=== PATIENT | female | born 1960 | race American Indian/Alaskan Native ===

== ENCOUNTER 2019-04-11 22:22 | Emergency (ER) | payer BC ==
[2019-04-11 22:37] VITALS: BMI 37.0
[2019-04-11 22:45] VITALS: TEMP 98.5
[2019-04-11] MEDS ORDERED: Albuterol-Ipratrop 3 mg / 0.5 (3 ml) UD IH STA (23:05)
--- NOTE | 2019-04-11 23:10 | ED PDOC ---
Arrival/HPI <Seth Rodriguez - Last Filed: 04/12/19 00:14> - General Historian: Patient - History of Present Illness Narrative History of Present Illness (Text): 04/11/19 23:07 CC: b/l LE swelling HPI: 58 yo female w/ PMH of CAD, DM2, HTN comes to ED for evaluation of b/l lower extremity swelling. Patient states that it started greater than a week ago. Patient states that she had prior episodes in the past but was limited to one leg only. Patient states that she has some chest tightness and attributes it to her asthma. Denies fevers, chills, chest pain, sob, n/v, constipation or diarrhea, and dysuria. Time/Duration: > week Symptom Onset: Gradual Symptom Course: Worsening Severity Level: 8 Activities at Onset: Light Context: Standing <Ricardo Gray - Last Filed: 04/12/19 03:10> - General Chief Complaint: Lower Extremity Problem/Injury Time Seen by Provider: 04/11/19 22:40 Past Medical History - Cardiac Hx Hypertension: Yes - Pulmonary Hx Asthma: Yes - Neurological Hx Transient Ischemic Attacks (TIA): Yes - HEENT Hx HEENT Disorder: No - Renal Hx Renal Disorder: No - Endocrine/Metabolic Hx Endocrine Disorders: Yes Hx Diabetes Mellitus Type 2: Yes - Hematological/Oncological Hx Blood Disorders: No - Integumentary Hx Dermatological Disorder: No - Musculoskeletal/Rheumatological Hx Falls: No - Gastrointestinal Hx Gastrointestinal Disorders: No - Genitourinary/Gynecological Hx Genitourinary Disorders: No - Psychiatric Hx Psychophysiologic Disorder: No Hx Substance Use: No - Surgical History Hx Tubal Ligation: Yes (24 years ago) Other/Comment: gallstones - Anesthesia Hx Anesthesia: Yes Hx Anesthesia Reactions: No Hx Malignant Hyperthermia: No - Suicidal Assessment Feels Threatened In Home Enviroment: No <Ricardo Gray - Last Filed: 04/12/19 03:10> Family/Social History Family/Social History: No Known Family HX Smoking Status: Never Smoked Hx Alcohol Use: Yes Frequency of alcohol use: Socially Hx Substance Use: No <Ricardo Gray - Last Filed: 04/12/19 03:10> Allergies/Home Meds <Seth Rodriguez - Last Filed: 04/12/19 00:14> <Ricardo Gray - Last Filed: 04/12/19 03:10> Allergies/Adverse Reactions: Allergies dog dander Allergy (Verified 04/11/19 22:39) SWELLING shrimp Allergy (Verified 04/11/19 22:39) RASH milk Adverse Reaction (Verified 04/11/19 22:39) DIARRHEA Home Medications: Home Meds Medication Instructions Recorded Confirmed Aspirin 325 mg PO DAILY 03/31/14 09/05/17 Rosuvastatin Calcium [Crestor] 1 tab PO DAILY 05/31/14 09/05/17 metFORMIN [glucOPHAGE] 500 mg PO BID 05/19/17 09/05/17 Cyanocobalamin (Vitamin B-12) 1 spray NS QWK 08/15/17 09/05/17 [Nascobal] Pregabalin [Lyrica] 75 mg PO BID 08/15/17 09/05/17 amLODIPine [Norvasc] 10 mg PO DAILY 08/15/17 09/05/17 Review of Systems - Review of Systems Constitutional: Normal. absent: Fatigue, Weight Change, Fevers Eyes: Normal. absent: Vision Changes, Photophobia ENT: Normal. absent: Hearing Changes, Tinnitus, TMJ Pain Respiratory: Normal. absent: SOB, Cough, Sputum, Wheezing Cardiovascular: Normal. absent: Chest Pain, Palpitations, Edema, Calf Pain Gastrointestinal: Normal. absent: Abdominal Pain, Stool Changes, Constipation, Diarrhea, Nausea, Vomiting Genitourinary Female: Normal. absent: Dysuria, Frequency, Hematuria Skin: Normal. absent: Rash, Pruritis, Skin Lesions Endocrine: Normal. absent: Diaphoresis, Polyuria, Polydipsia Hemo/Lymphatic: Other (b/l edema in LE) Psychiatric: Normal. absent: Anxiety, Depression <IsaacRicardo - Last Filed: 04/12/19 03:10> Physical Exam Vital Signs Temp Pulse Resp BP Pulse Ox 04/11/19 23:40 155/85 H 04/11/19 22:22 98.5 F 77 18 155/92 H 97 <Seth Rodriguez - Last Filed: 04/12/19 00:14> Vital Signs Reviewed: Yes Vital Signs Temp Pulse Resp BP Pulse Ox 04/11/19 22:22 98.5 F 77 18 155/92 H 97 Temperature: Afebrile Blood Pressure: Hypertensive Pulse: Regular Respiratory Rate: Normal Appearance: Positive for: Well-Appearing, Non-Toxic, Comfortable Pain Distress: None Mental Status: Positive for: Alert and Oriented X 3 - Systems Exam Head: Present: Atraumatic, Normocephalic Pupils: Present: PERRL Extroacular Muscles: Present: EOMI Conjunctiva: Present: Normal Mouth: Present: Moist Mucous Membranes. No: Dry Neck: Present: Normal Range of Motion. No: Meningeal Signs, Paraspinal Tenderness, JVD Respiratory/Chest: Present: Clear to Auscultation, Good Air Exchange. No: Respiratory Distress, Accessory Muscle Use, Wheezes, Decreased Breath Sounds Cardiovascular: Present: Regular Rate and Rhythm, Normal S1, S2. No: Murmurs Abdomen: Present: Normal Bowel Sounds. No: Tenderness, Distention, Peritoneal Signs Upper Extremity: Present: Normal Inspection. No: Cyanosis, Edema Lower Extremity: Present: Edema. No: Normal Inspection (+2 pitting edema in LE b/l), CALF TENDERNESS, Cyanosis, Erythema Neurological: Present: GCS=15, CN II-XII Intact, Speech Normal Skin: Present: Warm, Dry, Normal Color. No: Rashes Psychiatric: Present: Alert, Oriented x 3, Normal Insight, Normal Concentration <Ricardo Gray - Last Filed: 04/12/19 03:10> Medical Decision Making ED Course and Treatment: Impression: Pt seen and evaluated with medical dosimetrist. Aware and agree with HPI, clinical findings, plan, and management. Pt, whose past medical history includes CAD, diabetes, asthma, and hypertension, presented for bilateral lower extremity swelling and chest tightness. Plan: -- US Duplex Lower Extremities -- Labs -- Duoneb -- Lasix -- Reassess and disposition - RAD Interpretation Radiology Orders: 04/11/19 23:14 DUPLEX LOWER EXTRM VEIN BILAT [US] Stat - Medication Orders Current Medication Orders: Discontinued Medications Albuterol/Ipratropium (Duoneb 3 Mg/0.5 Mg (3 Ml) Ud) 3 ml IH STAT STA Stop: 04/11/19 23:06 Last Admin: 04/11/19 23:40 Dose: 3 ml Furosemide (Lasix) 40 mg IVP STAT STA Stop: 04/11/19 23:14 Last Admin: 04/11/19 23:40 Dose: 40 mg MAR Blood Pressure Document 04/11/19 23:40 HB (Rec: 04/12/19 00:04 HB [facility]-20) Blood Pressure Blood Pressure (100/60-150/90 mm Hg) 155/85 IVP Administration Document 04/11/19 23:40 HB (Rec: 04/12/19 00:04 HB [facility]-20) Charges for Administration # of IVP Administrations 1 <Seth Rodriguez - Last Filed: 04/12/19 00:14> ED Course and Treatment: 04/11/19 23:20 Impression 58 yo female w/ PMH of CAD, DM2, HTN comes to ED for evaluation of b/l lower extremity swelling. Plan -CBC -CMP -LE duplex b/l -Lasix -Duoneb Prior Visits All prior documentation and labwork reviewed prior to evaluation Progress Notes pending imaging and blood work Doppler of LE extremities were negative for DVT Patient ambulating without pain 04/12/19 03:08 Re-evaluation Time: 03:08 Reassessment Condition: Improving,but remains with symptoms - Lab Interpretations Lab Results: 04/11/19 23:30 04/11/19 23:30 Lab Results 04/11/19 23:30: Sodium 141, Potassium 3.7, Chloride 106, Carbon Dioxide 27, Anion Gap 12, BUN 17, Creatinine 0.6 L, Est GFR ( Amer) > 60, Est GFR (Non-Af Amer) > 60, Random Glucose 105, Calcium 8.9, Total Bilirubin 0.4, AST 18, ALT 20, Alkaline Phosphatase 68, Total Protein 7.1, Albumin 4.0, Globulin 3.1, Albumin/Globulin Ratio 1.3 04/11/19 23:30: WBC 8.8, RBC 4.12, Hgb 11.4 L, Hct 35.5 L, MCV 86.2, MCH 27.7, MCHC 32.1, RDW 14.6 H, Plt Count 305, MPV 9.4, Neut % (Auto) 48.5 L, Lymph % (Auto) 43.9 H, Overton % (Auto) 6.8 H, Eos % (Auto) 0.6 L, Baso % (Auto) 0.2, Lymph # (Auto) 3.9 H, [place] # (Auto) 0.6, Eos # (Auto) 0.1, Baso # (Auto) 0.02, Absolute Neuts (auto) 4.27 I have reviewed the lab results: Yes Interpretation: All labs normal <Ricardo Gray - Last Filed: 04/12/19 03:10> - PA / [employer]NACE / Resident Statement / has reviewed & agrees with the documentation as recorded. / has examined the patient and agrees with the treatment plan. <Seth Rodriguez - Last Filed: 04/12/19 00:14> Disposition/Present on Arrival <Seth Rodriguez - Last Filed: 04/12/19 00:14> - Present on Arrival Any Indicators Present on Arrival: No History of DVT/PE: No History of Uncontrolled Diabetes: No Urinary Catheter: No History of Decub. Ulcer: No History Surgical Site Infection Following: None - Disposition Have Diagnosis and Disposition been Completed?: Yes Disposition Time: 03:09 Patient Plan: Discharge <Ricardo Gray - Last Filed: 04/12/19 03:10> - Disposition Diagnosis: Dependent edema Condition: IMPROVED Additional Instructions: 1. Please followup with primary medical doctor for possible sleep study 2. Please elevate legs at night when in bed and use compression stockings as n eeded for increased swelling Forms: [facility] (Syrian)
[2019-04-12 00:09] LABS: BASO # 0.02 K/mm3 (0.0-2.0); BASO % 0.2 % (0.0-3.0); EOS # 0.1 (0.0-0.7); EOS % 0.6 % (1.5-5.0); HEMOGLOBIN 11.4 g/dL (12.0-16.0); LYMPH # 3.9 (1.2-3.4); LYMPH % 43.9 % (22.0-35.0); MEAN CELL VOLUME 86.2 fl (80.0-105.0); MEAN CORPUSCULAR HEMOGLOBIN 27.7 pg (25.0-35.0); MEAN CORPUSCULAR HGB CONC 32.1 g/dl (31.0-37.0); MEAN PLATELET VOLUME 9.4 fl (7.0-11.0); MONO # 0.6 (0.1-0.6); MONO % 6.8 % (1.0-6.0); RBC 4.12 10^6/uL (3.5-6.1); RED CELL DISTRIBUTION WIDTH 14.6 % (11.5-14.5); WHITE BLOOD COUNT 8.8 10^3/uL (4.5-11.0)
[2019-04-12 00:23] LABS: ALB/GLOB RATIO 1.3 (1.1-1.8); BLOOD UREA NITROGEN 17 mg/dL (7-21); CALCIUM 8.9 mg/dL (8.4-10.5); GFR NON-AFRICAN AMERICAN > 60
[2019-04-12 00:26] LABS: ALT/SGPT 20 U/L (7-56); AST/SGOT 18 U/L (14-36)
[2019-04-12 02:48] VITALS: BP 155/112; PULSE 71; RESP 18; O2SAT 98
--- NOTE | 2019-04-12 13:21 | CARD ---
APPROVED REPORT Date of service: 04/11/2019 EKG Measurement Heart [id number] <Conclusion> Normal sinus rhythm Normal ECG
--- NOTE | 2019-04-13 11:08 | US ---
HISTORY: Leg pain and swelling. Evaluate for DVT PHYSICIAN(S): Daniel Bauer MD. TECHNIQUE: Duplex sonography and color-flow Doppler with graded compression were used to evaluate the deep venous systems of both lower extremities. FINDINGS: The visualized deep venous systems of both lower extremities are sonographically normal and compressible. Normal wave forms and augmentation are seen. There is no sonographic evidence for deep venous thrombosis in the visualized segments of both lower extremities. IMPRESSION: No sonographic evidence for deep venous thrombosis in the visualized segments of both lower extremities.
== END 2019-04-12 03:20 | disposition home or self-care (01) ==
LOC: ED 22:22
DX: R60.9 Edema, unspecified (principal); E11.9 Type 2 diabetes mellitus without complications; I10 Essential (primary) hypertension; I25.10 Atherosclerotic heart disease of native coronary artery without angina pectoris; Z86.73 Personal history of transient ischemic attack (TIA), and cerebral infarction without residual deficits
CPT/HCPCS: 80053; 85025; 93005; 93970; 96374; 99283; J1940